=== PATIENT | male | born 1985 | race Asian ===

== ENCOUNTER → 2021-01-25 | Outpatient (CLI) | payer SELFPAY | LOC: M LABSMTC 11:14 | PROVIDERS: ATTEND Pediatrics | DX: Z11.52 Encounter for screening for COVID-19 (principal) ==

== ENCOUNTER 2023-08-18 15:13 | Emergency (ER) | payer OTHER ==
[~2023-08-18] VITALS: Ht 177.8 cm; Wt 96.1 kg
[~2023-08-18 15:13] MED LIST: CEPH500C PO; ENOX40IN3 SC; FLUO20CA22 PO; IBUP-1022 PO; NAPR-849 PO; XARE20TA PO
[2023-08-18 15:15] VITALS: BP 129/72; TEMP 98.5; O2SAT 97
[2023-08-18] MEDS ORDERED: ZOLM2.5T20 (15:50)
[2023-08-18 16:05] LABS: APPEARANCE, URINE CLEAR (CLEAR); BACTERIA, URINE AUTO NEGATIVE (NEGATIVE); BILIRUBIN, URINE AUTO NEGATIVE (NEGATIVE); BLOOD, URINE BLOOD NEGATIVE (NEGATIVE); COLOR, URINE COLORLESS (YELLOW); GLUCOSE, URINE (UA) AUTO NEGATIVE (NEGATIVE); KETONE, URINE AUTO NEGATIVE (NEGATIVE); LEUKOCYTE ESTERASE, URINE AUTO NEGATIVE (NEGATIVE); NITRITE, URINE AUTO NEGATIVE (NEGATIVE); PROTEIN, URINE AUTO NEGATIVE (NEGATIVE); RBC, URINE AUTO 0 /HPF (0-3); SPECIFIC GRAVITY URINE AUTO 1.005 (1.002-1.035); SQUAMOUS EPITHELIAL CELL UR AU 0 /HPF (0-6); UROBILINOGEN, URINE AUTO 0.2 mg/dL (0.0-2.0); WBC, URINE AUTO 0 /HPF (0-3)
== END 2023-08-18 18:10 | disposition left against medical advice (07) ==
LOC: M ED 15:13
DX: Z53.21 Procedure and treatment not carried out due to patient leaving prior to being seen by health care provider (principal)

== ENCOUNTER 2023-10-21 13:20 | Emergency (ER) | payer OTHER ==
[~2023-10-21] VITALS: Ht 177.8 cm; Wt 97.7 kg
[~2023-10-21 13:20] MED LIST changes: +ZOLM2.5T20
[2023-10-21 13:22] VITALS: BP 137/72; TEMP 98.6; O2SAT 97
== END 2023-10-21 14:00 | disposition left against medical advice (07) ==
LOC: M ED 13:20
DX: Z53.21 Procedure and treatment not carried out due to patient leaving prior to being seen by health care provider (principal)

== ENCOUNTER 2023-10-28 12:33 | Emergency (ER) | payer OTHER ==
[~2023-10-28] VITALS: Ht 177.8 cm; Wt 101.0 kg
[2023-10-28] MEDS ORDERED: LEXA5TAB13 (12:53)
[2023-10-28] MEDS ORDERED: ADVA230A (12:53)
[2023-10-28] MEDS ORDERED: ALBU8.5H (12:53)
[2023-10-28] MEDS ORDERED: REFR0.1D (12:53)
[2023-10-28] MEDS ORDERED: D 50CAP2 (12:53)
[2023-10-28] MEDS ORDERED: RAME8TAB2 (12:53)
[2023-10-28] MEDS ORDERED: VERA80TA3 (12:53)
[2023-10-28] MEDS ORDERED: PRAZ2CAP (12:53)
[2023-10-28 15:25] VITALS: BP 125/68; TEMP 98.2; O2SAT 97
== END 2023-10-28 15:27 | disposition home or self-care (01) ==
LOC: M ED 12:33
DX: U07.1 COVID-19 (principal); J45.909 Unspecified asthma, uncomplicated; Z86.711 Personal history of pulmonary embolism; Z79.02 Long term (current) use of antithrombotics/antiplatelets

== ENCOUNTER → 2023-12-08 | Outpatient (CLI) | payer OTHER ==
[~2023-12-08] MED LIST changes: +ADVA230A; +ALBU8.5H; +D 50CAP2; +LEXA5TAB13; +PRAZ2CAP; +RAME8TAB2; +REFR0.1D; +VERA80TA3
[2023-12-08 17:15] LABS: BASO # 0.1 10^3/uL (0.0-0.2); BASO % 0.8 % (0.0-1.0); EOS # 0.2 10^3/uL (0.0-0.5); HEMATOCRIT 44.5 % (42.0-52.0); LYMPH # 2.8 10^3/uL (1.5-5.0); LYMPH % 31.2 % (24.0-44.0); MEAN CORPUSCULAR HEMOGLOBIN 29.5 pg (27.0-33.0); MEAN CORPUSCULAR HGB CONC 33.7 g/dl (32.0-36.5); MEAN CORPUSCULAR VOLUME 87.6 fl (80.0-96.0); MONO # 0.7 10^3/uL (0.0-0.8); MONO % 7.7 % (2.0-8.0); NEUTROPHILS # 5.1 10^3/uL (1.5-8.5); NEUTROPHILS % 57.8 % (36.0-66.0); PLATELET COUNT, AUTOMATED 229 10^3/uL (150-450); RED BLOOD COUNT 5.08 10^6/uL (4.30-6.10); WHITE BLOOD COUNT 8.9 10^3/uL (4.0-10.0)
== END ==
LOC: M PLALAB 14:58
PROVIDERS: ATTEND Internal Medicine Hematology
DX: I82.90 Acute embolism and thrombosis of unspecified vein (principal)

== ENCOUNTER → 2024-01-26 | Outpatient (CLI) | payer OTHER ==
[~2024-01-26] MED LIST changes: +ISOVUE-370 76% 100ML VIAL As Ordered ONE
== END ==
LOC: M RAD 14:48
PROVIDERS: ATTEND Nurse Practitioner Family
DX: J45.909 Unspecified asthma, uncomplicated (principal); R06.02 Shortness of breath